=== PATIENT | male | born 1980 | race American Indian/Alaskan Native ===

== ENCOUNTER 2021-07-20 11:03 | Outpatient (CLI) | payer OTHER ==
--- NOTE | 2021-07-20 15:12 | Magnetic Resonance Report ---
MRI BRAIN 07/20/2021 INDICATION / CLINICAL INFORMATION: TRIGEMINAL NEURALGIA. TECHNIQUE: Multiplanar, multisequence MR images of the brain were obtained. COMPARISON: None available. FINDINGS: BRAIN / INTRACRANIAL CONTENTS: Unenhanced and enhanced MR images of the brain were obtained. Detailed views of the trigeminal nerve region were obtained. There is no evidence of acute abnormality. Ventricles and sulci are normal in size and shape. There is no evidence of ischemic injury, demyelination, hemorrhage, or mass. There is no evidence of abnormality along the course of the trigeminal nerves. Postcontrast images demonstrate no abnormal contrast enhancement. EXTRACRANIAL: Unremarkable CRANIOCERVICAL JUNCTION: No significant abnormality. VASCULAR FLOW-VOIDS: No significant abnormality. IMPRESSION: No significant abnormality. Negative unenhanced and enhanced MRI of the brain. Signer Name: Shyam Higuera MD Signed: 07/20/2021 3:07 PM Workstation Name: [id number]
== END 2021-07-20 11:04 | disposition home or self-care (01) ==
LOC: MRI 11:03
PROVIDERS: ATTEND Internal Medicine
DX: G50.0 Trigeminal neuralgia (principal)
CPT/HCPCS: 70553; A9575